=== PATIENT | female | born 1955 | race Caucasian/White ===

== ENCOUNTER 2018-11-21 16:20 | Inpatient (IN) | payer MEDICARE, OTHER ==
[~2018-11-21] VITALS: Ht 167.6 cm; Wt 72.6 kg
--- NOTE | 2018-11-21 16:25 | NUR ---
"SOB WITH HYPOXIA PER NUMERICAL CONTROL OPERATOR REPORT, RECENTLY DC FROM [facility]" PT TO BED 5, PT AAOX4, ON 15L NRBR, O2 SAT 100%, RT AND MD AT BEDSIDE
[2018-11-21] MEDS ORDERED: IBUPROFEN 600 MG TABLET PO ONE ×2 (16:30→17:12)
[2018-11-21] MEDS ORDERED: IV NS 0.9% 1,000 ML BAG IV ONE ×2 (16:30→17:00)
[2018-11-21] MEDS ORDERED: ACETAMINOPHEN ES 500 MG TABLET PO ONE (16:30)
[2018-11-21 16:43] LABS: ABG BASE EXCESS 1.1 mmol/L; ABG PCO2 48.2 mmHg (35.0-45.0); ABG PH 7.364 (7.350-7.450); AaDO2 401.8 mmHg; COHb 0.1 % (0.5-1.5); MetHb 0.4 % (0.0-1.5); O2Hb 98.5 % (94.0-97.0); SITE, ABG Left Radial
[2018-11-21 16:46] LABS: BASOPHILS # (AUTO) 0.1 /CMM (0.0-0.2); BASOPHILS % (AUTO) 0.7 % (0.0-2.0); EOSINOPHILS % (AUTO) 0.1 % (0.0-6.0); HEMATOCRIT 27 % (33-45); LYMPHOCYTES # (AUTO) 1.4 /CMM (0.8-4.8); LYMPHOCYTES % (AUTO) 13.7 % (20.0-44.0); MEAN CORPUSCULAR HGB CONC 33 g/dl (31.0-36.0); MEAN CORPUSCULAR VOLUME 90 fL (82-100); MONOCYTES # (AUTO) 1.1 /CMM (0.1-1.30); MONOCYTES % (AUTO) 10.7 % (2.0-12.0); NEUTROPHILS # (AUTO) 7.8 /CMM (1.8-8.9); NEUTROPHILS % (AUTO) 74.8 % (43.0-81.0); PLATELET COUNT (AUTO) 363 /CMM (150-450); RED BLOOD CELL COUNT(AUTO) 3.02 MIL/uL (4.0-5.2); WHITE BLOOD COUNT (AUTO) 10.5 K/uL (4.3-11.0)
[2018-11-21] MEDS ORDERED: CARI350T PO (16:52)
[2018-11-21] MEDS ORDERED: ATOR10TA PO (16:52)
[2018-11-21] MEDS ORDERED: IBUP-23 PO (16:52)
[2018-11-21] MEDS ORDERED: GABA-534 PO (16:52)
[2018-11-21] MEDS ORDERED: ACET-868 PO (16:52)
[2018-11-21 16:57] LABS: CALCIUM, SERUM 8.8 mg/dL (8.5-10.1); CREATININE 1.3 mg/dL (0.6-1.3); POTASSIUM 4.6 mmol/L (3.5-5.1)
[2018-11-21] MEDS ORDERED: IV NS 0.9% 500 ML BAG IV ONE (17:00)
[2018-11-21] MEDS ORDERED: VANCOMYCIN 1 GM in IV D5W 250 ML IV ONE (17:00)
[2018-11-21] MEDS ORDERED: PIPERACILLIN /TAZOBACTAM 3.375 G in IV D5W 50 ML IV ONE (17:00)
[2018-11-21] MEDS ORDERED: ACETAMINOPHEN ES 500 MG TABLET ONE (17:11)
[2018-11-21 17:12] LABS: ALBUMIN 1.7 g/dL (3.4-5.0); BILIRUBIN,DIRECT 0.1 mg/dL (0.0-0.2); BILIRUBIN,TOTAL 0.1 mg/dL (0.2-1.0); TOTAL PROTEIN, SERUM 6.9 g/dL (6.4-8.2)
[2018-11-21 17:30] LABS: APPEARANCE,URINE Clear (CLEAR); BILIRUBIN,URINE Negative (NEGATIVE); BLOOD, URINE Moderate Ery/uL (NEGATIVE); COLOR,URINE Yellow (YELLOW); KETONES,URINE Negative (NEGATIVE); LEUKOCYTE ESTERASE ,URINE Negative (NEGATIVE); NITRITE, URINE Negative (NEGATIVE); PROTEIN,URINE Negative (NEGATIVE); UGLUCOSE Negative (NEGATIVE); UROBILINOGEN,URINE 0.2 EU/dL (0.2)
--- NOTE | 2018-11-21 17:33 | NUR ---
PER DR DAVIES, HOLD NS 1.5L FOR NOW. JUST INFUSE NS 1L
[2018-11-21] MEDS ORDERED: IOHEXOL-300 100 ML VIAL IV ONE (17:45)
[2018-11-21] MEDS ORDERED: IV NS 0.9% 250 ML IV ONE (17:45)
[2018-11-21] MEDS ORDERED: CT SWABBABLE VALVE TRANS SET 1 EA INFUS.SET MC ONE (17:46)
[2018-11-21 17:57] LABS: BACTERIA,URINE Few /HPF (None Seen); SQUAMOUS EPITHELIAL CELL,UR Moderate /HPF (None Seen); WBC,URINE 0-2 /HPF (0-3)
[2018-11-21 17:58] LABS: URINE AMORPHOUS URATE Moderate /HPF (None Seen)
[2018-11-21] MEDS ORDERED: PANTOPRAZOLE 40 MG VIAL ONE (17:58)
[2018-11-21] MEDS ORDERED: PANTOPRAZOLE 40 MG VIAL IV ONE (18:00)
--- NOTE | 2018-11-21 19:00 | NUR ---
PER DR MENDOZA, PT NEEDS TO BE IN ICU, CALLED HOUSE SUP REQUSTED FOR AN ICU BED
--- NOTE | 2018-11-21 20:05 | NUR ---
UNPAID INTERN RCD PT FROM ER DX PNA; A/Ox 4. NSR ON MONITOR. O2 2L NC CLEAR BREATH SOUNDS. SKIN INTACT. PT EDUCATED ON PLAN OF CARE. VERBALIZES UNDERSTANDING.
[2018-11-21 20:33] VITALS: BP 130/39
--- NOTE | 2018-11-21 20:33 | NUR ---
REPORT GIVEN TO MIRELLA PACHECO FOR MARCELO; PT WILL BE TRANSPORTED TO ICU VIA ACLS PROTOCOL
[2018-11-21] MEDS: ENOXAPARIN SODIUM 40 MG/0.4 ML DISP.SYRIN SQ SCH (20:57)
[2018-11-21] MEDS: IV NS 0.9% 1,000 ML IV PRN (20:57)
[2018-11-21 21:00] VITALS: BP 94/48
[2018-11-21] MEDS ORDERED: MAGNESIUM HYDROXIDE 30 ML UDC PO PRN (21:00)
[2018-11-21] MEDS ORDERED: MAG HYDROX/AL HYDROX/SIMETH 30 ML UDC PO PRN (21:00)
[2018-11-21] MEDS ORDERED: Z GUARD REMEDY 2 OZ OINT TP PRN (21:00)
[2018-11-21] MEDS ORDERED: ACETAMINOPHEN 325 MG TABLET PO PRN (21:00)
[2018-11-21] MEDS ORDERED: ONDANSETRON HCL/PF 4 MG/2 ML VIAL IVP PRN (21:00)
[2018-11-21] MEDS ORDERED: FEE PK DOSING 1 MIN EA MC ONE (21:17)
[2018-11-21] MEDS: LEVOFLOXACIN (500MG) 500 MG TABLET PO SCH (21:21)
[2018-11-21 22:00] VITALS: BP 91/51
[2018-11-21] MEDS ORDERED: IV NS 0.9% 250 ML IV PRN (22:30)
[2018-11-21 23:00] VITALS: BP 101/49
[2018-11-21] MEDS: PIPERACILLIN /TAZOBACTAM 3.375 G in IV D5W 100 ML IV SCH (23:00)
[2018-11-22] VITALS (18 sets, daily range): BP systolic 112–160; BP diastolic 60–88
[2018-11-22] MEDS ORDERED: PIPERACILLIN /TAZOBACTAM 4.5 G in IV D5W 50 ML IV SCH ×2
--- NOTE | 2018-11-22 03:15 | NUR ---
DYE RANGE FEEDER PT UPSET SHE IS AT THIS HOSPITAL. STATES SHE SHOULD HAVE BEEN TAKEN TO [facility]. PER PT SHE IS FRUSTRATED AND HAS REMOVED NIBP CUFF. PT REQUESTED SOMETHING FOR HEAD PAIN. OFFERED TYLENOL; PT AGREED. MEDICATED WITH TYLENOL 650 MG PO FOR HEAD ACHE 06/22. CONTINUE TO MONITOR.
[2018-11-22] MEDS: PIPERACILLIN /TAZOBACTAM 3.375 G in IV D5W 100 ML IV SCH ×2 (05:00→14:06)
[2018-11-22 05:02] LABS: BASOPHILS % (AUTO) 0.3 % (0.0-2.0); EOSINOPHILS % (AUTO) 1.2 % (0.0-6.0); HEMATOCRIT 26 % (33-45); HEMOGLOBIN 8.5 g/dL (11.5-14.8); LYMPHOCYTES # (AUTO) 0.7 /CMM (0.8-4.8); LYMPHOCYTES % (AUTO) 7.8 % (20.0-44.0); MEAN CORPUSCULAR HGB CONC 33 g/dl (31.0-36.0); MEAN CORPUSCULAR VOLUME 91 fL (82-100); MONOCYTES # (AUTO) 0.9 /CMM (0.1-1.30); NEUTROPHILS # (AUTO) 6.8 /CMM (1.8-8.9); NEUTROPHILS % (AUTO) 79.7 % (43.0-81.0); PLATELET COUNT (AUTO) 309 /CMM (150-450); RED BLOOD CELL COUNT(AUTO) 2.81 MIL/uL (4.0-5.2); WHITE BLOOD COUNT (AUTO) 8.6 K/uL (4.3-11.0)
[2018-11-22 05:12] LABS: ALBUMIN 1.5 g/dL (3.4-5.0); BILIRUBIN,TOTAL 0.3 mg/dL (0.2-1.0); CREATININE 1.1 mg/dL (0.6-1.3); MAGNESIUM 1.6 mg/dL (1.8-2.4); PHOSPHORUS 3.7 mg/dL (2.5-4.9); TOTAL PROTEIN, SERUM 6.3 g/dL (6.4-8.2)
--- NOTE | 2018-11-22 06:45 | NUR ---
RADIO DIVISION LIEUTENANT PT DECLINED TO BE REPOSITIONED BY NURSING STAFF; PER PT OFFLOADING ON PILLOW CAUSED HER BACK TO HURT. PT REMAINED IN SUPINE POSITION AND DECLINED OFFLOADING HEELS/ELBOWS.
--- NOTE | 2018-11-22 07:30 | NUR ---
RN NOTES RECEIVED PATIENT IN BED, A/A/O X4, ON SITTING POSITION. ABLE TO MAKE NEEDS KNOWN. DENIES SHORTNESS OF BREATH, ON OXYGEN SUPPORT VIA NASAL CANNULA AT 2LPM, SATING FINE BUT WITH OBVIOUS EFFORT ON BREATHING SPECIALLY WHEN TALKING. PATIENT " WHY AM I HERE? I WANTED TO GO HOME."REORIENTED PATIENT ON THE SITUATION AND INFORMED HER THAT HER STAY IN THE HOSPITAL WILL BE UP TO THE MD AND WOULD BE BETTER IF SHE DIRECTS HER CONCERN WITH THE MD. WILL INFORMED MD ABOUT IT. PATIENT DENIES ANY PAIN AT THIS TIME. SINUS RHYTHM ON THE MONITOR WITH HR ON THE 90'S. IV LINE ON THE R AC G 20 AND R HAND G 20: BOTH IN PLACE, DRESSING CDI, PATENT ON FLUSHING, WITH ONGOING IVF OF NS AT 75 CC/HR. PATIENT ENCOURAGE TO CALL FOR HELP/ASSISTANCE. SAFETY MEASURES OBSERVED AND MAINTAINED. CALL LIGHT PLACED WITHIN REACH. WILL CONTINUE TO MONITOR AND ANTICIPATE NEEDS OF THE PATIENT
--- NOTE | 2018-11-22 08:30 | NUR ---
RN NOTES SEEN AND EXAMINED BY DR. FERGUSON WITH ORDERS FOR LABS IN AM AND PATIENT TO TRANSFER TO MED SURG.
[2018-11-22] MEDS: ASPIRIN 81 MG TAB.CHEW PO SCH ×2 (08:46→08:48)
--- NOTE | 2018-11-22 09:00 | NUR ---
RN NOTES PATIENT REFUSED SCHEDULED ASPIRIN " I DONT TAKE ASPIRIN" INFORMED PATIENT THAT IT WAS JUST ORDERED BY DR FERGUSON. " I REALLY DONT THING ASPIRIN SPECIALLY NOW THEY HAVE GIVEN ME BLOOD THINNER." RISK AND BENEFITS EXPLAINED. PATIENT STILL REFUSED
--- NOTE | 2018-11-22 09:30 | NUR ---
RN NOTES SEEN AND EXAMINED BY DR. COPPOLA, PER MD WILL TRANSFER PATIENT TO REGULAR FLOOR.
[2018-11-22] MEDS: Magnesium 1GM/D5W 100ML PREMIX 100 ML IV SCH ×2 (09:39→11:32)
[2018-11-22] MEDS: LACTOBACILLUS RHAMNOSUS GG 1 EACH CAP.SPRINK PO SCH ×2 (09:40→16:07)
[2018-11-22 10:55] LABS: IRON, SERUM 14 ug/dl (50-175); TOTAL IRON BINDING CAPACITY 115 ug/dl (250-450)
[2018-11-22] MEDS ORDERED: VANCOMYCIN 1 GM in IV D5W 250ml IV SCH (12:00)
[2018-11-22] MEDS: HYDROCODONE/APAP 5/325MG 1 EACH TABLET PO PRN ×3 (12:22→20:58)
[2018-11-22] MEDS: IV NS 0.9% 1,000 ML IV PRN (12:24)
--- NOTE | 2018-11-22 13:09 | NUR ---
RN NOTES INFORMED DR FERGUSON ON PROCALCITONIN AT 4.29. NO NEW ORDER AND WITH REQUEST TO INFORM MANAGER INTERNAL
--- NOTE | 2018-11-22 13:15 | NUR ---
RN NOTES ENDORSED PATIENT TO TARA DELANEY FOR CONTINUITY OF CARE
--- NOTE | 2018-11-22 13:26 | NUR ---
RN NOTES TRANSFERRED PATIENT TO ROOM 309-1. HAND OFF. ENDORSED TO RHETT THAT ZOSYN NOT HANGED YET TO THIS TIME SINCE PATIENT STILL GETTING VANCOMYCIN AND MAGNESIUM.
--- NOTE | 2018-11-22 13:32 | NUR ---
TELE/RN PATIENT TRANSFERRED FROM ICU IN STABLE CONDITION, ON TELE AT THIS TIME TOLERATING WELL. RECEIVED REPORT FROM ARACELIS RN FOR ANY MARCELO. A/O X 4. NO SIGNS OF ACUTE DISTRESS. NO COMPLAIN OF PAIN OR DISCOMFORT. ON OXYGEN VIA NC AT 2LPM, TOLERATING WELL. ALL NEEDS ATTENDED TO AT THIS TIME. WILL CONTINUE TO MONITOR TO ENSURE SAFETY.
--- NOTE | 2018-11-22 13:40 | NUR ---
RN NOTES INFORMED DR. MENDOZA ON PRCALCITONIN LEVEL AT 4.29. NO NEW ORDERS AT THIS TIME
--- NOTE | 2018-11-22 13:59 | NUR ---
RN NOTES INFORMED DR. TOMAS ON PROCALCITONIN AT 4.29. NO NEW ORDERS AT THIS TIME
[2018-11-22] MEDS: CEFEPIME 1 GM in IV D5W 50 ML IV SCH (17:56)
--- NOTE | 2018-11-22 18:08 | NUR ---
TELE/RN CLOSING NOTE PATIENT IN BED IN STABLE CONDITION. A/O X 4. NO SIGNS OF ACUTE DISTRESS. NO COMPLAIN OF PAIN OR DISCOMFORT. ON TELE MONITOR NOTED WITH SR WITH RATE OF 89. ALL NEEDS ATTENDED TO. CALL LIGHT WITHIN REACH. WILL ENDORSE TO NEXT SHIFT FOR CONTINUITY OF CARE.
--- NOTE | 2018-11-22 19:35 | NUR ---
ELECTRICAL LABORATORY TECHNICIAN NOTES RECEIVED ON BED A/O X4,TRANSFER FROM ICU TODAY,BREATHING NON LABORED,DIMINISHED BREATH SOUND ON BOTH LOWER LUNG FIELD DUE TO PNEUMONIA.O2 IN USED AT 2L/TO KEEP O2 SAT ABOVE 90%,97% AT THE MOMENT.SALINE LOCK LEFT HAND INTACT AND PATENT.NS AT 75ML/HR RATE IN PROGRESS.CLAIMED OF HAVING DIARRHEA, HAD ONE THIS TIME AND ITS SOFT AND GREENISH,MODERATE AMOUNT.APPEARS WEAK,ASSISTED TO BEDSIDE COMMODE,TOLERATED WELL.ON GEL BED FOR SKIN MANAGEMENT.CALL LIGHT IN REACH,NEEDS ANTICIPATED.
--- NOTE | 2018-11-22 19:40 | NUR ---
CONSUMER LOAN OFFICER NOTES SR 86 ON TELE MONITOR.
[2018-11-22] MEDS: LEVOFLOXACIN (500MG) 500 MG TABLET PO SCH (20:57)
--- NOTE | 2018-11-22 20:58 | NUR ---
BOX BENDER NOTES PAIN MANAGEMENT C/O GENERALIZED PAIN 7/10 ON PAIN SCALE,NORCO 5/325MG,1 TAB PO GIVEN ORDERED.
[2018-11-22] MEDS: ENOXAPARIN SODIUM 40 MG/0.4 ML DISP.SYRIN SQ SCH (21:00)
--- NOTE | 2018-11-22 21:00 | NUR ---
DEV MANAGER NOTES OFFERED LOVENOX SCHEDULED BUT REFUSED.EXPLAINED RISK AND BENEFITS,BUT STILL REFUSED.
--- NOTE | 2018-11-22 22:00 | NUR ---
FARM MACHINERY ERECTOR NOTES VERY ANXIOUS.DR LANGLEY MADE AWARE,WITH ORDER TO GIVE XANAX .25MG PO Q8 HOURS NEEDED NOTED AND CARRIED OUT.
[2018-11-22] MEDS: ALPRAZOLAM 0.25 MG TABLET PO PRN (22:18)
--- NOTE | 2018-11-22 22:18 | NUR ---
HELP AID NOTES C/O ANXIETY, XANAX .25MG PO GIVEN ORDERED.
[2018-11-22 23:27] LABS: OCCULT BLOOD STOOL NEGATIVE (NEGATIVE)
[2018-11-23] VITALS: BP 135/79
[2018-11-23] MEDS: HYDROCODONE/APAP 5/325MG 1 EACH TABLET PO PRN ×5 (01:39→23:57)
--- NOTE | 2018-11-23 01:39 | NUR ---
WEATHER FORECASTER NOTES PAIN MANAGEMENT C/O GENERALIZED PAIN 6/10 ON PAIN SCALE.MEDICATED WITH NORCO 5/325MG,1 TAB PO ORDERED.
[2018-11-23] MEDS: IV NS 0.9% 1,000 ML IV PRN (05:15)
--- NOTE | 2018-11-23 05:25 | NUR ---
LIME BURNER NOTES AWAKE,BP 160/81,IN PAIN MEDICATED WITH NORCO 5/325MG,1TAB PO ORDERED
[2018-11-23] MEDS: CEFEPIME 1 GM in IV D5W 50 ML IV SCH ×2 (05:33→17:53)
--- NOTE | 2018-11-23 06:07 | NUR ---
TUBING MILL SETTER NOTES SLEPT WITH INTERVALS.VERY NEEDY.STOOL OB NEGATIVE FOR OCCULT BLOOD.WITH EPISODE OF NON PRODUCTIVE COUGH,OFFERED COUGH MEDICINE TO BE ORDERED BY HOSPITALIST BUILDING ADMIN BUT REFUSED.NO SOB,AFEBRILE.IN NO ACUTE DISTRESS.WILL ENDORSE TO FARRAH PACHECO FOR MARCELO.
[2018-11-23 06:40] LABS: BASOPHILS % (AUTO) 0.2 % (0.0-2.0); EOSINOPHILS % (AUTO) 1.8 % (0.0-6.0); HEMATOCRIT 26 % (33-45); HEMOGLOBIN 8.7 g/dL (11.5-14.8); LYMPHOCYTES # (AUTO) 0.8 /CMM (0.8-4.8); LYMPHOCYTES % (AUTO) 10.5 % (20.0-44.0); MEAN CORPUSCULAR HGB CONC 33 g/dl (31.0-36.0); MEAN CORPUSCULAR VOLUME 89 fL (82-100); MONOCYTES # (AUTO) 0.9 /CMM (0.1-1.30); MONOCYTES % (AUTO) 12.3 % (2.0-12.0); NEUTROPHILS # (AUTO) 5.8 /CMM (1.8-8.9); NEUTROPHILS % (AUTO) 75.2 % (43.0-81.0); PLATELET COUNT (AUTO) 359 /CMM (150-450); RED BLOOD CELL COUNT(AUTO) 2.95 MIL/uL (4.0-5.2); WHITE BLOOD COUNT (AUTO) 7.7 K/uL (4.3-11.0)
[2018-11-23] MEDS: ALPRAZOLAM 0.25 MG TABLET PO PRN ×2 (06:50→15:34)
--- NOTE | 2018-11-23 06:50 | NUR ---
RECEIVING WORKER NOTES C/O ANXIETY,XANAX .25MG PO GIVEN ORDERED.
[2018-11-23 07:01] LABS: ALBUMIN 1.5 g/dL (3.4-5.0); BILIRUBIN,TOTAL 0.3 mg/dL (0.2-1.0); CALCIUM, SERUM 8.5 mg/dL (8.5-10.1); CREATININE 0.7 mg/dL (0.6-1.3); MAGNESIUM 1.5 mg/dL (1.8-2.4); PHOSPHORUS 2.6 mg/dL (2.5-4.9); POTASSIUM 3.8 mmol/L (3.5-5.1); TOTAL PROTEIN, SERUM 6.5 g/dL (6.4-8.2)
--- NOTE | 2018-11-23 07:10 | NUR ---
RN OPENING NOTES RECEIVED PATIENT IN BED RESTING. A/OX3, ABLE TO MAKE NEEDS KNOWN. NOT IN ANY FORM OF DISTRESS. NO SOB. DENIED PAIN OR DISCOMFORT AT THIS TIME. IV ACCESS INTACT AND PATENT. KEPT PATIENT SAFE AND COMFORTABLE. BED IN LOW/LOCKED POSITION, SIDERAILS UPX2, CALL LIGHT IN REACH.WILL CONTINUE TO MONITOR ACCORDINGLY.
[2018-11-23 08:00] VITALS: BP 154/80
[2018-11-23] MEDS: LACTOBACILLUS RHAMNOSUS GG 1 EACH CAP.SPRINK PO SCH ×2 (09:00→17:00)
[2018-11-23] MEDS: ASPIRIN 81 MG TAB.CHEW PO SCH (09:00)
[2018-11-23] MEDS ORDERED: IBUPROFEN 200 MG TABLET PO PRN (10:30)
--- NOTE | 2018-11-23 10:44 | NUR ---
RN NOTES CALLED AND SPOKE WITH DR COPPOLA REGARDING RECONCILING HER HOME MEDS. PER MD, CONTINUE ALL HOME MEDS. VERIFIED READ BACK NOTED AND WILL CARRY OUT
[2018-11-23] MEDS ORDERED: Magnesium 1GM/D5W 100ML PREMIX 100 ML IV SCH (11:20)
[2018-11-23] MEDS ORDERED: MAGNESIUM OXIDE 400 MG TABLET PO ONE (12:30)
--- NOTE | 2018-11-23 13:00 | NUR ---
RN NOTES IV ACCESS NOT PATENT, LEAKING, DC IV ACCESS. 2 ATTEMPTS MADE FOR IV INSERTION. PATIENT REFUSED AFTER 2 ATTEMPTS, PATIENT SAID "I DONT WANT IT ANYMORE!". DR COPPOLA MADE AWARE AND ORDERED TO PUT A MIDLINE.
--- NOTE | 2018-11-23 15:48 | NUR ---
RN NOTES:MIDLINE LEFT UA GAUGE 18 MIDLINE INTACT AND PATENT.
[2018-11-23] MEDS: SOD FERRIC GLUC 125 MG in IV NS 0.9% 100 ML IV SCH (15:58)
[2018-11-23 16:00] VITALS: BP 160/90
[2018-11-23] MEDS: GABAPENTIN 300 MG CAPSULE PO SCH ×2 (17:52→20:53)
[2018-11-23] MEDS: CARISOPRODOL 350 MG TABLET PO SCH (17:52)
--- NOTE | 2018-11-23 18:00 | NUR ---
RN NOTES OFF ON OXYGEN. PATIENT TOLERATING ROOM AIR SATTING 96%. SEEN BY PT. AGGRESSIVE AMBULATION TODAY.
[2018-11-23 18:25] VITALS: BP 134/78
--- NOTE | 2018-11-23 19:16 | NUR ---
MS RN NOTES RECEIVED ON BED SLEEPING,AROUSABLE TO VERBAL STIMULI.BREATHING NON LABORED,OFF O2 THIS TIME.WITH LEFT UPPER ARM MIDLINE FOR IV ABX.AMBULATE WITH ASSIST AND TO BEDSIDE COMMODE.WILL CONTINUE TO MONITOR STATUS.
--- NOTE | 2018-11-23 19:22 | NUR ---
RN CLOSING NOTES PATIENT IN STABLE CONDITION. ALL NEEDS ATTENDED AND PROVIDED. ALL DUE MEDICATIONS GIVEN ORDERED. ASSISTED WITH ADLS. KEPT PATIENT SAFE AND COMFORTABLE. BED IN LOW/LOCKED POSITION, SIDERAILS UPX2, CALL LIGHT IN REACH. ENDORSED TO TARA COLE FOR MARCELO
[2018-11-23 19:58] VITALS: BP 163/88
[2018-11-23 20:26] VITALS: BP 157/71
[2018-11-23] MEDS: LEVOFLOXACIN (500MG) 500 MG TABLET PO SCH (20:53)
[2018-11-23] MEDS: ENOXAPARIN SODIUM 40 MG/0.4 ML DISP.SYRIN SQ SCH (20:59)
[2018-11-23] MEDS: GUAIFENESIN/D-METHORPHAN HB 5 ML UDC PO PRN (21:48)
[2018-11-23] MEDS: ATORVASTATIN 10 MG TABLET PO SCH (21:48)
--- NOTE | 2018-11-23 21:48 | NUR ---
MS RN NOTES NOTED EPISODE OF COUGHING,DR LANGLEY MADE AWARE WITH NEW ORDER NOTED AND CARRIED OUT
--- NOTE | 2018-11-23 21:48 | NUR ---
MS RN NOTES ROBITUSSIN DM 5ML PO GIVEN ORDERED.
[2018-11-23] MEDS: ZOLPIDEM TARTRATE 5 MG TABLET PO PRN (21:53)
--- NOTE | 2018-11-23 21:53 | NUR ---
MS RN NOTES "I WANT TO SLEEP".MEDICATED WITH AMBIEN 5MG PO ORDERED FOR INSOMNIA.
--- NOTE | 2018-11-23 23:10 | NUR ---
MS RN NOTES STILL HAVING EPISODE OF NON PRODUCTIVE COUGH.O2 SAT 94% ON 2L/NC,WITH HEART RATE ON 106 MANUALLY FOR ONE MINUTE.,RR 24.DR LANGLEY MADE AWARE WITH NEW ORDER FOR BREATHING TREATMENT Q 4 HOURS NEEDED FOR SOB/CONGESTION,TESSALON ANABEL 100MG Q 8 OURS FOR COUGH AND CHEST X-RAY IN THE MORNING NOTED AND CARRIED OUT.
[2018-11-23] MEDS ORDERED: BENZONATATE 100 MG CAPSULE PO PRN (23:30)
[2018-11-23] MEDS: ALBUTEROL FS 2.5 MG/3 ML VIAL.NEB NEB PRN (23:37)
[2018-11-23] MEDS: IPRATROPIUM NEB FS 0.5 MG/2.5 ML AMPUL.NEB NEB PRN (23:38)
--- NOTE | 2018-11-23 23:38 | NUR ---
MS RN NOTES APPEARS CONGESTED,ALBUTEROL/ATROVENT BREATHING ADMINISTERED BY RT DUARTE ORDERED.
--- NOTE | 2018-11-23 23:57 | NUR ---
MS RN NOTES NOTED SKIN WARM TO THE TOUCH,BODY TEMPERATURE OF 101.3 VIA AXILLA.C/O GENERALIZED PAIN 6/10 ON PAIN SCALE.MEDICATED WITH NORCO 5/325MG,1TAB PO ORDERED,ALONG WITH TESSALON ANABEL 100MG PO FOR COUGHAS ORDERED.
--- NOTE | 2018-11-24 | NUR ---
MS RN NOTES STARTED ON COOLING MEASURES TO LOWER BODY TEMPERATURE.WILL CONTINUE TO MONITOR STATUS.
[2018-11-24 00:46] VITALS: BP 137/73
[2018-11-24 01:00] VITALS: BP_SYST 137
--- NOTE | 2018-11-24 03:23 | NUR ---
MS RN NOTES AWAKE THIS TIME,BODY TEMPERATURE RE CHECK DOWN TO 99.1 ORALLY.PATIENT CLAIMED SHE FEELS BETTER.ASSISTED TO THE TOILET.
--- NOTE | 2018-11-24 04:00 | NUR ---
MS RN NOTES SOUND ASLEEP,BREATHING NON LABORED,KEPT WARM AND COMFORTABLE.
[2018-11-24] MEDS: CEFEPIME 1 GM in IV D5W 50 ML IV SCH (05:29)
[2018-11-24 06:19] LABS: CALCIUM, SERUM 8.3 mg/dL (8.5-10.1); CREATININE 0.7 mg/dL (0.6-1.3); MAGNESIUM 1.4 mg/dL (1.8-2.4); POTASSIUM 3.8 mmol/L (3.5-5.1)
--- NOTE | 2018-11-24 07:11 | NUR ---
MS RN NOTES VERBALIZED,SHE FEELS MUCH,MUCH BETTER AND SHE'S READY TO GO HOME.AFEBRILE.IN NO ACUTE DISTRESS.ENDORSED TO FARRAH PACHECO FOR MARCELO.
--- NOTE | 2018-11-24 07:36 | NUR ---
RN OPENING NOTES RECEIVED PATIENT SITTING ON A CHAIR. A/OX3, ABLE TO MAKE NEEDS KNOWN. NOT IN ANY FORM OF DISTRESS. NO SOB. DENIED PAIN OR DISCOMFORT AT THIS TIME. IV ACCESS INTACT AND PATENT. KEPT PATIENT SAFE AND COMFORTABLE. BED IN LOW/LOCKED POSITION, SIDERAILS UPX2, CALL LIGHT IN REACH. WILL CONTINUE TO MONITOR ACCORDINGLY.
[2018-11-24 08:00] VITALS: BP 150/78
[2018-11-24 08:24] LABS: BASOPHILS % (AUTO) 0.5 % (0.0-2.0); EOSINOPHILS % (AUTO) 0.3 % (0.0-6.0); HEMATOCRIT 26 % (33-45); HEMOGLOBIN 8.4 g/dL (11.5-14.8); LYMPHOCYTES % (AUTO) 11.6 % (20.0-44.0); MEAN CORPUSCULAR HGB CONC 33 g/dl (31.0-36.0); MEAN CORPUSCULAR VOLUME 90 fL (82-100); MONOCYTES # (AUTO) 0.9 /CMM (0.1-1.30); MONOCYTES % (AUTO) 10.6 % (2.0-12.0); NEUTROPHILS # (AUTO) 6.8 /CMM (1.8-8.9); PLATELET COUNT (AUTO) 367 /CMM (150-450); RED BLOOD CELL COUNT(AUTO) 2.86 MIL/uL (4.0-5.2); WHITE BLOOD COUNT (AUTO) 8.8 K/uL (4.3-11.0)
[2018-11-24] MEDS: LACTOBACILLUS RHAMNOSUS GG 1 EACH CAP.SPRINK PO SCH ×2 (09:00→17:00)
[2018-11-24] MEDS: ASPIRIN 81 MG TAB.CHEW PO SCH (09:00)
[2018-11-24] MEDS: CARISOPRODOL 350 MG TABLET PO SCH ×3 (09:33→16:22)
[2018-11-24] MEDS: GABAPENTIN 300 MG CAPSULE PO SCH ×4 (09:33→21:13)
[2018-11-24] MEDS: HYDROCODONE/APAP 5/325MG 1 EACH TABLET PO PRN ×3 (09:35→21:29)
[2018-11-24] MEDS: Magnesium 1GM/D5W 100ML PREMIX 100 ML IV SCH ×4 (10:56→14:28)
[2018-11-24 11:31] LABS: OCCULT BLOOD STOOL NEGATIVE (NEGATIVE)
[2018-11-24] MEDS: SOD FERRIC GLUC 125 MG in IV NS 0.9% 100 ML IV SCH (15:41)
[2018-11-24 16:00] VITALS: BP 118/61
[2018-11-24] MEDS: CEFEPIME 2 GM in IV D5W 100 ML IV SCH (17:25)
--- NOTE | 2018-11-24 19:15 | NUR ---
RN OPENING NOTES RECEIVED PT IN BED AWAKE AND ABLE TO MAKE NEEDS KNOWN. PT A/OX3. RESPIRATIONS EVEN AND UNLABORED WITH NO S/S OF ACUTE DISTRESS OR SOB NOTED. NO COMPLAINTS OF PAIN OR DISCOMFORT AT THIS TIME. PT WITH LYUDMILA MIDLINE IV ACCESS PATENT AND INTACT AND SL. SAFETY MEASURES IN PLACE WITH BED IN LOWEST LOCKED POSITION WITH SIDE RAILS UPX2. CALL LIGHT WITHIN REACH. WILL CONTINUE TO MONITOR.
--- NOTE | 2018-11-24 19:24 | NUR ---
RN CLOSING NOTES PATIENT IN STABLE CONDITION. ALL NEEDS ATTENDED AND PROVIDED. ALL DUE MEDICATIONS GIVEN ORDERED. ASSISTED WITH ADLS. KEPT PATIENT SAFE AND COMFORTABLE. BED IN LOW/LOCKED POSITION, SIDERAILS UPX2, CALL LIGHT IN REACH. ENDORSED TO TARA ARNDT FOR MARCELO
[2018-11-24 20:31] VITALS: BP 145/78
[2018-11-24] MEDS: ATORVASTATIN 10 MG TABLET PO SCH (21:12)
[2018-11-24] MEDS: LEVOFLOXACIN (500MG) 500 MG TABLET PO SCH (21:13)
[2018-11-24] MEDS: ENOXAPARIN SODIUM 40 MG/0.4 ML DISP.SYRIN SQ SCH (21:15)
[2018-11-24] MEDS: GUAIFENESIN/D-METHORPHAN HB 5 ML UDC PO PRN (21:28)
[2018-11-24] MEDS: ALBUTEROL FS 2.5 MG/3 ML VIAL.NEB NEB PRN (21:42)
[2018-11-24] MEDS: IPRATROPIUM NEB FS 0.5 MG/2.5 ML AMPUL.NEB NEB PRN (21:42)
[2018-11-24] MEDS: ZOLPIDEM TARTRATE 5 MG TABLET PO PRN (22:16)
[2018-11-25] MEDS: CEFEPIME 2 GM in IV D5W 100 ML IV SCH (06:04)
[2018-11-25 06:33] LABS: CALCIUM, SERUM 8.4 mg/dL (8.5-10.1); CREATININE 0.7 mg/dL (0.6-1.3); POTASSIUM 3.7 mmol/L (3.5-5.1)
--- NOTE | 2018-11-25 07:34 | NUR ---
RN OPENING NOTES PT IN BED AWAKE AND ABLE TO MAKE NEEDS KNOWN. PT A/OX3. RESPIRATIONS EVEN AND UNLABORED WITH NO S/S OF ACUTE DISTRESS OR SOB NOTED. NO COMPLAINTS OF PAIN OR DISCOMFORT AT THIS TIME. PT WITH LYUDMILA MIDLINE IV ACCESS PATENT AND INTACT AND SL. SAFETY MEASURES IN PLACE WITH BED IN LOWEST LOCKED POSITION WITH SIDE RAILS UPX2. CALL LIGHT WITHIN REACH. WILL ENDORSE TO ONCOMING NURSE FOR MARCELO.
[2018-11-25 08:00] VITALS: BP 151/80
--- NOTE | 2018-11-25 08:00 | NUR ---
m/s pack train driver: initial assessment received pt in bed awake, a/ox4; ambulatory. pt still coughing and c/o pain when coughing. pt request for pain relief. will continue to monitor.
[2018-11-25] MEDS: GABAPENTIN 300 MG CAPSULE PO SCH (08:04)
[2018-11-25] MEDS: GUAIFENESIN/D-METHORPHAN HB 5 ML UDC PO PRN (08:04)
[2018-11-25] MEDS: CARISOPRODOL 350 MG TABLET PO SCH (08:04)
[2018-11-25] MEDS: LACTOBACILLUS RHAMNOSUS GG 1 EACH CAP.SPRINK PO SCH (08:04)
[2018-11-25] MEDS: HYDROCODONE/APAP 5/325MG 1 EACH TABLET PO PRN (08:07)
[2018-11-25] MEDS: ASPIRIN 81 MG TAB.CHEW PO SCH (08:09)
[2018-11-25] MEDS ORDERED: LEVO750T21 PO (08:16)
--- NOTE | 2018-11-25 08:30 | NUR ---
m/s glass embosser: md visit seen and examined by dr. schulz with order to d'c home with prescriptions. pt has oxygen at home as stated.
[2018-11-25] MEDS ORDERED: GUAI5SYR4 PO (08:35)
--- NOTE | 2018-11-25 09:00 | NUR ---
m/s wheat cleaner: notes sister here to pickle pumper pt. dr. schulz spoke to sister and updated plan of care. all questions and concerns answered by .
--- NOTE | 2018-11-25 09:07 | NUR ---
m/s account representative: notes pt verbalized relief of pain. will monitor.
--- NOTE | 2018-11-25 09:20 | NUR ---
m/s assessment specialist: notes midline removed, luann. well with no bleeding, no redness, and no swelling noted. pressure dressing applied.
--- NOTE | 2018-11-25 09:45 | NUR ---
m/s database analyst: notes discharged instructions with prescriptions given to pt and verbalized understanding. reviewed all medications and including prescriptions; pt verbalized understanding. no bleeding on the iv site, dressing in place. all valuables returned to pt.
--- NOTE | 2018-11-25 09:58 | NUR ---
m/s plug cutting machine operator: discharged discharged home in stable condition accompanied by sister via private car with all d'c papers and valuables.
== END 2018-11-25 10:00 | disposition home or self-care (01) | DRG 871 ==
LOC: ER 16:22 → ICU 20:12 → TELE 11-22 13:26 → MED 11-23 11:21
PROVIDERS: ADMIT Internal Medicine; ATTEND Family Medicine
PROC: 05HC33Z Insertion of Infusion Device into Left Basilic Vein, Percutaneous Approach (ICD-10-PCS; principal; 2018-11-23)
DX: A41.9 Sepsis, unspecified organism (principal); J18.9 Pneumonia, unspecified organism; G93.41 Metabolic encephalopathy; I21.4 Non-ST elevation (NSTEMI) myocardial infarction; N17.0 Acute kidney failure with tubular necrosis; J96.01 Acute respiratory failure with hypoxia; I21.A1 Myocardial infarction type 2; I50.32 Chronic diastolic (congestive) heart failure; I12.9 Hypertensive chronic kidney disease with stage 1 through stage 4 chronic kidney disease, or unspecified chronic kidney disease; Z87.01 Personal history of pneumonia (recurrent); D63.8 Anemia in other chronic diseases classified elsewhere; N18.9 Chronic kidney disease, unspecified; M19.90 Unspecified osteoarthritis, unspecified site; Z79.899 Other long term (current) drug therapy; Z87.81 Personal history of (healed) traumatic fracture
CPT/HCPCS: 36415; 36569; 36600; 71045-TC; 71260-TC; 80048-TC; 80053-TC; 80061-TC; 80076-TC; 81000-TC; 82272-TC; 82803-TC; 83540-TC; 83605-TC; 83735-TC; 83880; 84100-TC; 84484-TC; 85025-TC; 85730-TC; 87040-TC; 87081-TC; 87086-TC; 93307-TC; 94799-TC; 97116-TC; 97530-TC; C9113; G0378; J0692; J1650; J2543; J2916; J3370; J3475; J7030; J7040; J7050; J7060; Q9967